=== PATIENT | male | born 1975 | race Two or more races ===

== ENCOUNTER 2019-02-15 02:04 | Emergency (ER) | payer OTHER ==
[~2019-02-15] VITALS: Ht 170.2 cm; Wt 68.9 kg
[2019-02-15 02:16] VITALS: BP 127/51
[2019-02-15] MEDS ORDERED: CIPROFLOXACIN HCL 250 MG TABLET PO ONE (02:30)
[2019-02-15] MEDS ORDERED: CIPROFLOXACIN HCL 500 MG TABLET ONE (02:35)
== END 2019-02-15 02:42 | disposition home or self-care (01) ==
LOC: ER 02:05
DX: Z00.00 Encounter for general adult medical examination without abnormal findings (principal); Z88.6 Allergy status to analgesic agent